=== PATIENT | male | born 1970 | race Caucasian/White ===

== ENCOUNTER 2022-07-15 01:36 | Emergency (ER) | payer OTHER ==
--- NOTE | 2022-07-15 02:16 | ED Physician Documentation ---
PD HPI OVERDOSE - Stated complaint Stated Complaint: ETOH/MEDICINE COMBINATION - Chief complaint Chief Complaint: MHE - History obtained from History obtained from: Family - Additional information Additional information: HPI is from patient's spouse who is in the ED at patient's bedside. On my evaluation, patient is sleeping, awakens to verbal stimulus but falls back asleep rapidly (and thus is unable to contribute to my HPI/ROS). Patient's spouse says that they had an argument earlier tonight. Tonight approximately 00:41 this morning (approximately 1 hour prior to arrival), the patient texted her; the content of the text message implies thoughts of self- harm. She checked on the patient (he was in another room), and found him awake but with his prescription diazepam out of the prescription bottle and on a table next to him. He admitted to drinking a bottle of wine to her and told her he had taken five tablets of the diazepam (she brought the rx with her; the rx is for 5mg tablet diazepam, 0.5-1 tablet QHS PRN insomnia. There are four tablets missing out of 24 tablets. The prescription was filled three weeks ago). PD PAST MEDICAL HISTORY - Past Medical History Past Medical History: Yes Cardiovascular: High cholesterol Respiratory: Sleep apnea Other Past Medical History: insomnia - Past Surgical History Past Surgical History: Yes HEENT: Tonsil/Adenoidectomy - Present Medications Home Medications: Ambulatory Orders Medication Instructions Recorded Confirmed [place]/Acetaminophen/Caffeine 1 each PO DAILY 09/15/15 09/15/15 [Fioricet 50-300-40 mg Capsule] Amlodipine Besylate [Norvasc] 10 mg PO 07/15/22 Atorvastatin Calcium 40 mg PO 07/15/22 Diazepam [Valium] 0.5 mg PO QPM 07/15/22 07/15/22 Metoprolol Succinate [Toprol Xl] 50 mg PO 07/15/22 07/15/22 - Allergies Allergies/Adverse Reactions: Allergies Allergy/AdvReac Type Severity Reaction Status Date / Time codeine Allergy Itching Verified 07/15/22 01:57 - Social History Does the pt smoke?: No Smoking Status: Never smoker Does the pt drink ETOH?: No Does the pt have substance abuse?: No - Immunizations Immunizations are current?: No Immunizations: TDAP >10years/unknown PD ED PE NORMAL - Vitals Vital signs reviewed: Yes - General General: No acute distress, Well developed/nourished, Other (drowsy, falls asleep repeatedly during HPI) - HEENT HEENT: PERRL, EOMI - Cardiac Cardiac: RRR, No murmur - Respiratory Respiratory: No respiratory distress, Clear bilaterally - Abdomen Abdomen: Normal bowel sounds - Derm Derm: Normal color - Neuro Eye Opening: To Voice Motor: Obeys Commands Verbal: Oriented GCS Score: 14 Results - Vitals Vitals: Oxygen O2 Source Room air Oxygen Flow Rate 2 - Labs Labs: Laboratory Tests 07/15/22 07/15/22 07/15/22 02:20 02:20 02:20 WBC 8.5 RBC 5.65 Hgb 15.0 Hct 48.8 MCV 86.4 MCH 26.5 L MCHC 30.7 L RDW 13.7 Plt Count 190 MPV 10.3 Neut # (Auto) 4.4 Lymph # (Auto) 3.1 [place] # (Auto) 0.7 Eos # (Auto) 0.2 Baso # (Auto) 0.1 Absolute Nucleated RBC 0.00 Nucleated RBC % 0.0 Sodium 138 Potassium 3.5 Chloride 99 L Carbon Dioxide 28 Anion Gap 11.0 BUN 23 H Creatinine 1.2 Estimated GFR (MDRD) 64 L Glucose 121 H Calcium 9.4 Total Bilirubin 0.5 AST 34 ALT 51 Alkaline Phosphatase 61 Total Protein 8.0 Albumin 4.4 Globulin 3.6 Albumin/Globulin Ratio 1.2 Lipase 44 TSH 3.29 Urine Color Urine Clarity Urine pH Ur Specific [place] Urine Protein Urine Glucose (UA) Urine Ketones Urine Occult Blood Urine Nitrite Urine Bilirubin Urine Urobilinogen Ur Leukocyte Esterase Ur Microscopic Review Urine Culture Comments Salicylates < 6.0 Urine Opiates Screen Ur Oxycodone Screen Urine Methadone Screen Ur Propoxyphene Screen Acetaminophen < 10 L Ur Barbiturates Screen Ur Tricyclics Screen Ur Phencyclidine Scrn Ur Amphetamine Screen U Methamphetamines Scrn U Benzodiazepines Scrn Urine Cocaine Screen U Cannabinoids Screen Ethyl Alcohol 62.4 07/15/22 03:14 WBC RBC Hgb Hct MCV MCH MCHC RDW Plt Count MPV Neut # (Auto) Lymph # (Auto) [place] # (Auto) Eos # (Auto) Baso # (Auto) Absolute Nucleated RBC Nucleated RBC % Sodium Potassium Chloride Carbon Dioxide Anion Gap BUN Creatinine Estimated GFR (MDRD) Glucose Calcium Total Bilirubin AST ALT Alkaline Phosphatase Total Protein Albumin Globulin Albumin/Globulin Ratio Lipase TSH Urine Color YELLOW Urine Clarity CLEAR Urine pH 5.5 Ur Specific [place] 1.025 Urine Protein NEGATIVE Urine Glucose (UA) NEGATIVE Urine Ketones NEGATIVE Urine Occult Blood TRACE-INTA Urine Nitrite NEGATIVE Urine Bilirubin NEGATIVE Urine Urobilinogen 0.2 (NORMAL) Ur Leukocyte Esterase NEGATIVE Ur Microscopic Review NOT INDICATED Urine Culture Comments NOT INDICATED Salicylates Urine Opiates Screen NEGATIVE Ur Oxycodone Screen NEGATIVE Urine Methadone Screen NEGATIVE Ur Propoxyphene Screen NEGATIVE Acetaminophen Ur Barbiturates Screen POSITIVE H Ur Tricyclics Screen NEGATIVE Ur Phencyclidine Scrn NEGATIVE Ur Amphetamine Screen NEGATIVE U Methamphetamines Scrn NEGATIVE U Benzodiazepines Scrn POSITIVE H Urine Cocaine Screen NEGATIVE U Cannabinoids Screen NEGATIVE Ethyl Alcohol PD Medical Decision Making - ED course Complexity details: reviewed old records (reviewed ED notes ([facility]) from 2016 (similar presentation, was eventually cleared for d/c home) ), reviewed results, re-evaluated patient, considered differential, d/w patient, d/w family ED course: No concerning findings on tests (blood tests, UA, UDS). His serum ethanol level is 62.4. UDS is positive for benzodiazepines (expected with diazepam), and barbiturates (patient takes fioricet). Patient became increasingly awake and alert early in ED stay. He is asking to leave. I discussed with him the concern that he is having thoughts of self-harm and he repeatedly denies this. I asked patient's spouse if she feels comfortable taking him home and she answers in the affirmative. She says she was chiefly concerned with the physical consequences of taking too much medication with the alcohol, but is reassured when I explain that his alcohol level is not very high and that the medication should already have hit peak effect and thus he is medically safe for discharge. Departure - Departure Disposition: 01 Home, Self Care Clinical Impression: Medication overdose Qualifiers: Encounter type: initial encounter Injury intent: accidental or unintentional Qualified Code(s): T50.901A - Poisoning by unspecified drugs, medicaments and biological substances, accidental (unintentional), initial encounter Condition: Good Instructions: ED Overdose Accidental Comments: There were no concerning findings on the test performed tonight. As we discussed, you need to take any and all prescription medications according to the prescription label. Additionally, you should not drink any alcohol if you are taking diazepam. If your prescribed medication does not seem to be controlling the symptoms for which it was prescribed, contact your primary care provider to arrange for a follow-up appointment to discuss this. Discharge Date/Time: 07/15/22 03:55
[2022-07-15 02:23] LABS: BASOPHILS # (AUTO) 0.1 10^3/uL (0.0-0.1); BASOPHILS % (AUTO) 0.6 %; EOSINOPHILS # (AUTO) 0.2 10^3/uL (0.0-0.7); EOSINOPHILS % (AUTO) 2.6 %; HCT - HEMATOCRIT 48.8 % (42.0-52.0); LYMPHOCYTES # (AUTO) 3.1 10^3/uL (1.5-3.5); LYMPHOCYTES % (AUTO) 36.7 %; MEAN CORPUSCULAR HEMOGLOBIN 26.5 pg (27.0-31.0); MEAN CORPUSCULAR HGB CONC 30.7 g/dL (32.0-36.0); MEAN CORPUSCULAR VOLUME 86.4 fL (80.0-94.0); MEAN PLATELET VOLUME 10.3 fL (7.4-11.4); MONOCYTES # (AUTO) 0.7 10^3/uL (0.0-1.0); MONOCYTES % (AUTO) 8.7 %; NEUTROPHILS # (AUTO) 4.4 10^3/uL (1.5-6.6); PLT - PLATELET COUNT 190 10^3/uL (130-450); RED BLOOD COUNT 5.65 10^6/uL (4.70-6.10); RED CELL DISTRIBUTION WIDTH 13.7 % (12.0-15.0); WHITE BLOOD COUNT 8.5 x10^3/uL (4.8-10.8)
[2022-07-15 02:37] LABS: ACETAMINOPHEN < 10 ug/mL (10-30); ETOH - ETHANOL 62.4 mg/dL; SALICYLATE < 6.0 mg/dL
[2022-07-15 02:38] LABS: ALBUMIN 4.4 g/dL (3.2-5.5); ALBUMIN/GLOBULIN RATIO 1.2 (1.0-2.2); ALKALINE PHOSPHATASE 61 IU/L (42-121); ALT ALANINE AMINOTRANSFERASE 51 IU/L (10-60); AST ASPARTATE AMINOTRANSFERASE 34 IU/L (10-42); BILIRUBIN,TOTAL 0.5 mg/dL (0.2-1.0); BUN - BLOOD UREA NITROGEN 23 mg/dL (6-20); CALCIUM 9.4 mg/dL (8.5-10.3); CARBON DIOXIDE - CO2 28 mmol/L (21-32); CHLORIDE 99 mmol/L (101-111); CREATININE 1.2 mg/dL (0.6-1.2); GFR - MDRD 64 (>89); GLUCOSE 121 mg/dL (70-100); LIPASE 44 U/L (22-51); POTASSIUM 3.5 mmol/L (3.5-5.0); SODIUM 138 mmol/L (135-145)
[2022-07-15 03:23] LABS: MUDS CUTOFF CONCENTRATIONS CUTOFF CONC BELOW:
[2022-07-15 03:25] LABS: BILIRUBIN,URINE NEGATIVE (NEGATIVE); GLUCOSE, URINE (UA) NEGATIVE (NEGATIVE); KETONES,URINE (UA) NEGATIVE (NEGATIVE); LEUKOCYTE ESTERASE, URINE NEGATIVE (NEGATIVE); NITRITE,URINE NEGATIVE (NEGATIVE); OCCULT BLOOD,URINE TRACE-INTA (NEGATIVE); PH,URINE 5.5 PH (5.0-7.5); PROTEIN,URINE NEGATIVE (NEGATIVE); UROBILINOGEN,URINE 0.2 (NORMAL) E.U./dL (NORMAL)
[2022-07-15 03:28] LABS: CLARITY,URINE CLEAR (CLEAR)
[2022-07-15 03:35] LABS: AMPHETAMINE SCREEN,URINE NEGATIVE (NEGATIVE); BARBITURATE SCREEN,UR POSITIVE (NEGATIVE); BENZODIAZEPINES SCREEN, URINE POSITIVE (NEGATIVE); COCAINE SCREEN URINE NEGATIVE (NEGATIVE); METHADONE SCREEN, URINE NEGATIVE (NEGATIVE); METHAMPHETAMINES SCREEN, URINE NEGATIVE (NEGATIVE); OPIATE SCREEN, URINE NEGATIVE (NEGATIVE); OXYCODONE SCREEN, URINE NEGATIVE (NEGATIVE); PROPOXYPHENE SCREEN, URINE NEGATIVE (NEGATIVE); THC CANNABINOID SCREEN, URINE NEGATIVE (NEGATIVE); TRICYCLIC ANTIDEPRESSANT,URINE NEGATIVE (NEGATIVE)
[2022-07-15 04:01] VITALS: BP 130/81
== END 2022-07-15 03:55 | disposition home or self-care (01) ==
LOC: ED 01:36
DX: R41.82 Altered mental status, unspecified (principal); T50.901A Poisoning by unspecified drugs, medicaments and biological substances, accidental (unintentional), initial encounter
CPT/HCPCS: 36415; 80053; 80306; 80307; 80320; 80329; 81001; 81003; 83690; 84443; 85025; 87086; 99284